=== PATIENT | male | born 1975 | race African-American/Black ===

== ENCOUNTER 2022-08-18 07:50 | Emergency (ER) | payer OTHER, SELFPAY ==
[2022-08-18 07:55] VITALS: BP 180/116; PULSE 86; RESP 20; TEMP 36.8; O2SAT 100
[2022-08-18] MEDS: ACETAMINOPHEN 325 MG TABLET 650 MG PO (08:01)
[2022-08-18 08:31] VITALS: TEMP 36.8
--- NOTE | 2022-08-18 08:59 | ED.LOWEXIN ---
HPI - Extremity Injury (Lower) General Chief Complaint: Extremity Injury, Lower Stated Complaint: left knee pain Time Seen by Provider: 08/18/22 07:54 History of Present Illness HPI Narrative: Patient is a 46-year-old male who presents ER with left knee pain. Patient slept in fell onto his left knee while working earlier. Has pain to anterior aspect. He is able to evaluate feels that there may be some swelling. No head injury or other concerns. Related Data Home Medications Medication Instructions Recorded Confirmed amlodipine 5 mg tablet mg 08/18/22 valsartan 160 mg tablet mg 08/18/22 Allergies Allergy/AdvReac Type Severity Reaction Status Date / Time No Known Allergies Allergy Mild Verified 08/18/22 07:57 Review of Systems Musculoskeletal: Musculoskeletal: Reports arthralgias and Denies joint swelling Integumentary/Breasts: Skin/Breast: Denies rash Neurologic: Denies focal weakness and Denies numbness PMFSH Family History Family History (Updated 06/27/13 @ 08:36 by DOCTOR UNKNOWN) Other Asthma Cerebrovascular accident Depression Diabetes mellitus Family history of arthritis Family history of mental disorder Hypertension Social History Social History Smoking status: Never smoker Second hand tobacco smoke exposure: No Alcohol intake: never Exam Narrative: GENERAL: Well-appearing, well-nourished, and in no acute distress. HEAD: Normocephalic, atraumatic. EXTREMITIES: Normal range of motion. No edema. Very superficial contusion left anterior knee and lateral aspect. No effusion. SKIN: Warm, dry, no rash. NEURO: Alert and oriented x3. PSYCH: Normal mood and affect. Course Course Emergency Course: Patient informed of x-ray results. Appropriate for discharge. No acute interventions required. Vital Signs Vital signs: Vital Signs Temperature 98.2 F 08/18/22 07:55 Pulse Rate 86 08/18/22 07:55 Respiratory Rate 20 08/18/22 07:55 Blood Pressure 180/116 H 08/18/22 07:55 Pulse Oximetry 100 08/18/22 07:55 Oxygen Delivery Room Air 08/18/22 07:55 Temperature 98.2 F 08/18/22 07:55 Pulse Rate 86 08/18/22 07:55 Respiratory Rate 20 08/18/22 07:55 Blood Pressure 180/116 H 08/18/22 07:55 Pulse Oximetry 100 08/18/22 07:55 Oxygen Delivery Room Air 08/18/22 07:55 Discharge Plan Discharge Clinical Impression: Anterior knee pain Patient Disposition: Home, Self-Care Condition: Stable Instructions: Knee Pain (ED) Additional Instructions: Return to the ER if you have new injury, you have chest pain or shortness of breath, you have additional concerns. Take Tylenol as needed for pain. Prescriptions: No Action amlodipine 5 mg tablet valsartan 160 mg tablet Follow-up/Referrals: Acharya,Gisel Benavides APN [Primary Care Provider] - 1 Week Stand Alone Forms: Work/School Release IP
[2022-08-18 09:16] VITALS: BP 135/77; PULSE 80; RESP 16; O2SAT 100
== END 2022-08-18 09:17 | disposition home or self-care (01) ==
PROVIDERS: Emergency Provider Emergency Medicine; PCP Nurse Practitioner Family
DX: S80.02XA Contusion of left knee, initial encounter (principal); W01.0XXA Fall on same level from slipping, tripping and stumbling without subsequent striking against object, initial encounter
CPT/HCPCS: 73562; 99283; A9270